=== PATIENT | male | born 1990 | race Caucasian/White ===

== ENCOUNTER 2018-05-23 05:35 | Emergency (ER) | payer SELFPAY ==
[~2018-05-23] VITALS: Ht 182.9 cm; Wt 99.8 kg
--- NOTE | 2018-05-23 05:35 | NUR ---
PT DRAKE BLS. TAKEN TO BED 5
[2018-05-23 05:42] VITALS: BP 152/99
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
--- NOTE | 2018-05-23 06:27 | NUR ---
Dr. Gonzalez evaluating patient at bedside.
--- NOTE | 2018-05-23 06:38 | NUR ---
Patient discharged BY DR. ADAMS with v/s stable. Written and verbal after care instructions given and explained. Patient verbalized understanding. Ambulatory with steady gait. All questions addressed prior to discharge. Advised to follow up with PMD.
[2018-05-23 06:40] VITALS: BP 145/89
[2018-05-23 06:47] LABS: BARBITURATE, URINE NEG. ng/ml (NEG <=200); BENZODIAZEPINE, URINE NEG. ng/mL (NEG <=200); CANNABINOID, URINE NEG. ng/mL (NEG <=50); COCAINE, URINE NEG. ng/mL (NEG <=300); OPIATE, URINE NEG. ng/mL (NEG <=2000); PHENCYCLIDINE SCREEN,URINE NEG. ng/mL (NEG <=25)
== END 2018-05-23 06:38 | disposition home or self-care (01) ==
LOC: MED 05:35
DX: Z13.89 Encounter for screening for other disorder (principal)
CPT/HCPCS: 80305; 99283